=== PATIENT | male | born 1985 | race Hispanic/Latino ===

== ENCOUNTER 2017-02-01 11:56 | Emergency (ER) | payer SELFPAY ==
[~2017-02-01] VITALS: Ht 167.6 cm; Wt 72.7 kg
[~2017-02-01 11:56] MED LIST: ACYCLOVIR400 MG OR; ACYCLOVIR400 MG PO; MEDDOSEPAK PO; NO HOME MEDS
[2017-02-01 12:25] LABS: HEMATOCRIT 43.7 % (39.0-50.0); HEMOGLOBIN 15.1 g/dl (14.0-18.0); IMMATURE GRANULOCYTES 0.5 % (0.0-1.0); MEAN CELL VOLUME 84.9 fL CALC (80.0-100.0); MEAN CORPUSCULAR HGB 29.3 pG CALC (26.0-32.0); MEAN CORPUSCULAR HGB CONC 34.6 g/L CALC (32.0-36.0); NEUT# 6.08 thou/uL (1.82-7.42); RED BLOOD COUNT 5.15 mill/uL (4.70-6.10); RED CELL DISTRI WIDTH 12.2 % (11.5-15.5)
[2017-02-01 12:44] LABS: ALBUMIN 4.8 g/dL (3.2-5.0); ALKALINE PHOSPHATASE 112 u/l (38-126); ANION GAP 18 (6-22 (CALC)); BILIRUBIN, TOTAL 0.8 mg/dL (0.0-1.4); BUN 9 mg/dL (9-20); BUN/CREATININE RATIO 12 (12-20 (CALC)); CALCIUM 9.5 mg/dL (8.4-10.2); CARBON DIOXIDE 24 mmol/l (22-30); CHLORIDE 100 mmol/l (95-108); CREATININE 0.7 mg/dL (0.7-1.3); GFR > 60 ML/MIN (>=60 (CALC)); GFR FOR AFR.AMER. > 60 ML/MIN (>=60 (CALC)); GLUCOSE 102 mg/dL (75-110); POTASSIUM 3.9 mmol/l (3.5-5.1); SGOT/AST 78 u/l (17-59); SGPT/ALT 102 u/l (21-72); SODIUM 138 mmol/l (137-146); TOTAL PROTEIN 7.7 g/dL (6.3-8.2)
[2017-02-01 13:50] LABS: URINE BILIRUBIN - DIPSTICK NEGATIVE (NEGATIVE); URINE BLOOD DIPSTICK NEGATIVE (NEGATIVE); URINE CLARITY CLEAR; URINE COLOR YELLOW; URINE GLUCOSE - DIPSTICK NEGATIVE (NEGATIVE); URINE KETONE NEGATIVE (NEGATIVE); URINE LEUK ESTERASE NEGATIVE (NEGATIVE); URINE NITRITE - DIPSTICK NEGATIVE (Negative); URINE PH 7.5 (4.5-8.0); URINE PROTEIN - DIPSTICK NEGATIVE (NEG-TRACE)
[2017-02-01 14:35] LABS: INFLUENZA A POSITIVE (NONE DETECT)
[2017-02-01 14:36] LABS: INFLUENZA B NONE DETECTED (NONE DETECT)
[2017-02-01] MEDS ORDERED: TAM75CAP PO (15:01)
[2017-02-01 15:10] VITALS: BP 122/67
== END 2017-02-01 15:29 | disposition home or self-care (01) | DRG 153 ==
LOC: ED 11:56
PROVIDERS: Emergency Medicine
DX: J11.1 Influenza due to unidentified influenza virus with other respiratory manifestations (principal); R50.9 Fever, unspecified; R51 Headache; R05 Cough

== ENCOUNTER 2024-05-28 20:49 | Inpatient (IN) | payer SELFPAY ==
[~2024-05-28] VITALS: Ht 162.6 cm; Wt 83.0 kg
[2024-05-28] VITALS (15 sets, daily range): BP systolic 58–171; BP diastolic 39–112
[~2024-05-28 20:49] MED LIST changes: +TAM75CAP PO
[2024-05-28] MEDS ORDERED: dilTIAZem HCL 50 MG/10 ML SDV IV ONE ×3 (21:19→22:40)
[2024-05-28] MEDS ORDERED: LABETALOL HCL 20 MG/ 4 ML CARTRG IV ONE ×2 (21:20→22:05)
[2024-05-28] MEDS ORDERED: ASPIRIN 81 MG/TAB PO ONE (21:20)
[2024-05-28] MEDS ORDERED: ENOXAPARIN SODIUM 30 MG/0.3 ML INJ SC ONE (21:20)
[2024-05-28] MEDS ORDERED: DILTIAZEM HCL 125 MG in SODIUM CHLORIDE 0.9% 100 ML IV ONE (21:20)
[2024-05-28] MEDS ORDERED: DEXTROSE 5% 100 ML IV ONE (21:23)
[2024-05-28] MEDS ORDERED: SODIUM CHLORIDE 0.9% 250 ML IV ONE (21:25)
[2024-05-28 21:33] LABS: BASO% 0.3 % (0-3); EOS% 6.3 % (0-8); HEMATOCRIT 44.3 % (39.0-50.0); HEMOGLOBIN 13.9 g/dl (14.0-18.0); IMMATURE GRANULOCYTES 0.1 % (0.0-5.0); LYMPH% 30.9 % (15-41); MEAN CELL VOLUME 84.9 fL CALC (80.0-100.0); MEAN CORPUSCULAR HGB 26.6 pG CALC (26.0-32.0); MEAN CORPUSCULAR HGB CONC 31.4 g/dL CAL (32.0-36.0); MONO% 13.5 % (2-13); NEUT# 3.33 thou/uL (1.82-7.42); NEUT% 48.9 % (42-76); RED BLOOD COUNT 5.22 mill/uL (4.70-6.10)
[2024-05-28 21:45] LABS: ALBUMIN 4.1 g/dL (3.2-5.0); ALKALINE PHOSPHATASE 166 u/l (38-126); ANION GAP 14 (6-22 (CALC)); BILIRUBIN, TOTAL 0.6 mg/dL (0.2-1.3); BUN 12 mg/dL (9-20); BUN/CREATININE RATIO 15 (12-20 (CALC)); CARBON DIOXIDE 27 mmol/l (22-30); CHLORIDE 103 mmol/l (95-108); CPK 82 u/l (55-170); CREATININE 0.8 mg/dL (0.7-1.3); ESTIMATED GFR 115 ML/MIN (>=90 (CALC)); LIPASE 504 u/l (23-300); MAGNESIUM 1.9 mg/dL (1.6-2.3); SGOT/AST 45 u/l (17-59); SODIUM 140 mmol/l (137-146); TOTAL PROTEIN 7.1 g/dL (6.3-8.2)
[2024-05-28 22:01] LABS: D-DIMER 0.21 mg/L (0.19-0.60)
[2024-05-28 22:08] LABS: ACT PARTIAL THROMBO TIME 25.7 SECONDS (20.0-32.5)
[2024-05-28 22:15] LABS: TSH, 3RD GENERATION < 0.02 uIU/mL (0.47 - 4.68)
[2024-05-28] MEDS ORDERED: ASPIRIN 81 MG/TAB PO SCH (22:53)
[2024-05-28] MEDS ORDERED: ONDANSETRON 4 MG/TAB ODT PO PRN (22:55)
[2024-05-28] MEDS ORDERED: IBUPROFEN 800 MG/TAB PO PRN (22:55)
[2024-05-28] MEDS ORDERED: Polyethylene Glycol 3350 17 GM/PKT PO PRN (22:55)
[2024-05-28] MEDS ORDERED: FAMOTIDINE 10MG/ML 2ML SDV IV PRN (22:55)
[2024-05-28] MEDS ORDERED: ONDANSETRON HCl 4 MG/2 ML SDV IV PRN (22:55)
[2024-05-28] MEDS ORDERED: ONDANSETRON HCl 4 MG/2 ML SDV IV ONE (22:55)
[2024-05-28] MEDS ORDERED: ALUM & MAG HYDROX-SIMETHICONE 30 ML PO PRN (22:55)
[2024-05-28] MEDS ORDERED: SODIUM CHLORIDE 0.9% 1,000 ML IV ONE ×2 (23:00→23:05)
[2024-05-28] MEDS ORDERED: dilTIAZem HCL 50 MG/10 ML SDV IV PRN ×2 (23:10)
[2024-05-28] MEDS ORDERED: DILTIAZEM HCL 125 MG in SODIUM CHLORIDE 0.9% 100 ML IV PRN (23:10)
[2024-05-28] MEDS ORDERED: SODIUM CHLORIDE 0.9% 250 ML IV PRN (23:10)
[2024-05-29] VITALS (84 sets, daily range): BP systolic 95–147; BP diastolic 52–110
[2024-05-29 03:20] LABS: BASO% 0.3 % (0-3); HEMATOCRIT 43.8 % (39.0-50.0); HEMOGLOBIN 13.7 g/dl (14.0-18.0); IMMATURE GRANULOCYTES 0.3 % (0.0-5.0); LYMPH% 21.6 % (15-41); MEAN CELL VOLUME 85.4 fL CALC (80.0-100.0); MEAN CORPUSCULAR HGB 26.7 pG CALC (26.0-32.0); MEAN CORPUSCULAR HGB CONC 31.3 g/dL CAL (32.0-36.0); MONO% 7.3 % (2-13); NEUT# 4.37 thou/uL (1.82-7.42); NEUT% 69.5 % (42-76); RED BLOOD COUNT 5.13 mill/uL (4.70-6.10); RED CELL DISTRI WIDTH 13.2 % (11.5-15.5)
[2024-05-29] MEDS ORDERED: SODIUM CHLORIDE IV PRN (08:00)
[2024-05-29] MEDS ORDERED: AMIODARONE HCL IV PRN (08:00)
[2024-05-29] MEDS ORDERED: SODIUM CHLORIDE 0.9% 500 ML IV PRN (08:25)
[2024-05-29] MEDS ORDERED: METOPROLOL TARTRATE 50 MG/TAB PO SCH (09:00)
[2024-05-29] MEDS ORDERED: ENOXAPARIN SODIUM 80 MG/0.8 ML SYR SC SCH (09:00)
[2024-05-29] MEDS ORDERED: METHIMAZOLE 5 MG/TAB PO SCH (11:00)
[2024-05-30] VITALS (14 sets, daily range): BP systolic 124–157; BP diastolic 72–96
[2024-05-30 05:10] LABS: HEMATOCRIT 41.6 % (39.0-50.0); HEMOGLOBIN 13.5 g/dl (14.0-18.0); MEAN CELL VOLUME 84.4 fL CALC (80.0-100.0); MEAN CORPUSCULAR HGB 27.4 pG CALC (26.0-32.0); MEAN CORPUSCULAR HGB CONC 32.5 g/dL CAL (32.0-36.0); RED BLOOD COUNT 4.93 mill/uL (4.70-6.10); RED CELL DISTRI WIDTH 13.1 % (11.5-15.5)
[2024-05-30 05:21] LABS: ALBUMIN 3.6 g/dL (3.2-5.0); CREATININE 0.5 mg/dL (0.7-1.3); MAGNESIUM 1.8 mg/dL (1.6-2.3); POTASSIUM 3.9 mmol/l (3.5-5.1); TOTAL PROTEIN 6.2 g/dL (6.3-8.2)
[2024-05-30 05:39] LABS: BILIRUBIN, TOTAL 0.9 mg/dL (0.2-1.3)
[2024-05-30] MEDS ORDERED: FLECAINIDE ACETATE 50 MG TAB PO SCH (09:00)
[2024-05-30] MEDS ORDERED: LOPRESSOR 550 MG/TAB PO (13:06)
[2024-05-30] MEDS ORDERED: FLECAINIDE50 MG PO (13:06)
[2024-05-30] MEDS ORDERED: XARELTO20 MG PO (13:07)
[2024-05-30] MEDS ORDERED: METHIMAZOLE5 MG PO (13:07)
== END 2024-05-30 13:57 | disposition home or self-care (01) | DRG 310 ==
LOC: ED 20:49 → ED-I 22:39 → ED 22:52 → ICU 22:53
PROVIDERS: Internal Medicine; ADMIT Internal Medicine; ATTEND Internal Medicine
DX: I48.91 Unspecified atrial fibrillation (principal); E05.90 Thyrotoxicosis, unspecified without thyrotoxic crisis or storm
CPT/HCPCS: J0282; J1650; J2405